=== PATIENT | female | born 2005 | race African-American/Black ===

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

== ENCOUNTER 2024-02-14 22:54 | Inpatient (IN) ==
[2024-02-14 23:56] LABS: Urine Appearance Clear; Urine Bilirubin Negative (Negative); Urine Blood Negative (Negative); Urine Color Colorless; Urine Glucose Negative (Negative); Urine Ketones Negative (Negative); Urine Nitrite Negative (Negative); Urine Protein Negative (Negative); Urine Specific Gravity 1.005 (1.002-1.030); Urine Urobilinogen Negative (Negative)
[2024-02-15 00:06] LABS: Urine Bacteria 1+ /HPF (Absent); Urine Red Blood Cell Trace(0-2/hpf) /HPF (0-Trace); Urine Squamous Epithelial Cell Present /HPF (Absent); Urine White Blood Cell 1+(6-10/hpf) /HPF (0-Trace)
[2024-02-15 00:13] LABS: Urine Benzodiazepine Screen None Detected (None Detect); Urine Cannabinoids Screen None Detected (None Detect); Urine Opiates Screen None Detected (None Detect)
[2024-02-15] MEDS ORDERED: Al Hydrox/Mg Hydrox/Simet LIQ 30 ML UDC PO PRN (02:40)
[2024-02-15 02:53] LABS: ABS Basophils 0.1 10^3/uL (0.0-0.1); ABS Eosinophils 0.3 10^3/uL (0.0-0.5); ABS Lymphocytes 2.6 10^3/uL (1.0-4.8); ABS Monocytes 0.6 10^3/uL (0.0-0.9); ABS Neutrophils 3.9 10^3/uL (1.5-7.6); ABS Nucleated RBC 0.01 10^3/ul; Eosinophil % 4.1 %; Hematocrit 37.5 % (35-45); Hemoglobin 12.3 g/dL (11.5-14.3); Lymphocyte % 34.2 %; Mean Corpuscular Hemoglobin 25.7 pg (27-33); Mean Corpuscular Hgb Conc 32.9 g/dL (31-36); Mean Corpuscular Volume 78.3 fL (80-97); Mean Platelet Volume 8.7 fL (7.5-11.2); Nucleated Red Blood Cells % 0.1 %/100WBC (0.0-0.8); Platelet Count 263 10^3/uL (150-450); Red Blood Count 4.79 10^6/uL (3.63-4.92); Red Cell Distribution Width 17.1 % (12-17); White Blood Count 7.5 10^3/uL (3.8-11.8)
[2024-02-15 04:11] LABS: ALT 15 U/L (7-52); AST 16 U/L (13-39); Acetaminophen < 15 mcg/mL; Albumin 4.3 g/dL (3.2-5.2); Albumin/Globulin Ratio 1.8 (1-3); Alcohol, S 13 mg/dL (<13); Alkaline Phosphatase 87 U/L (35-149); Anion Gap 7 mmol/L (2-16); Blood Urea Nitrogen 5 mg/dL (6-24); CO2 Carbon Dioxide 24 mmol/L (22-32); Calcium 9.5 mg/dL (8.6-10.3); Chloride 107 mmol/L (101-111); Creatinine, Serum 0.75 mg/dL (0.51-0.95); Globulin 2.4 g/dL (2-4); Glucose 83 mg/dL (70-100); Potassium 3.8 mmol/L (3.5-5.0); Salicylate < 2.50 mg/dL (<30); Sodium 138 mmol/L (135-145); Total Bilirubin 0.9 mg/dL (0.2-1.0); Total Protein 6.7 g/dL (6.4-8.9); eGFR CKD-EPI 117.5 (>60)
[2024-02-15 04:18] LABS: HCG Pregnancy < 0.60 mIU/mL
[2024-02-15 04:27] LABS: TSH Ultra Thyroid Stim Horm 2.84 mcIU/mL (0.34-5.60)
[2024-02-15] MEDS: Vitamin THERAPEUTIC TAB PO SCH (10:18)
[2024-02-17 09:51] VITALS: BP 133/93
== END 2024-02-17 13:10 | disposition home or self-care (01) | DRG 755 ==
LOC: ED 22:54 → BSU 02-15 01:40 → ED 02-15 06:41
PROVIDERS: ADMIT Psychiatry & Neurology Addiction Psychiatry; ATTEND Psychiatry & Neurology Psychiatry